=== PATIENT | female | born 1945 | race Caucasian/White ===

== ENCOUNTER → 2018-07-27 | Outpatient (CLI) | payer OTHER, BC ==
[~2018-07-27] VITALS: Ht 152.4 cm; Wt 61.7 kg
[~2018-07-27] MED LIST: ACETAMINOPHEN-1 EAC1 PO; ACETAMINOPHEN650 M5 PO; ADULT LOW DOSE81 MG PO; ALPRAZOLAM 0.0.25 M1 PO; BACTRIM DS TAB1 EACH PO; CALCIUM 500 +1 EACH PO; CALCIUM 500 WI1 EAC3 PO; FLEXERIL PO; HYDROCHLOROTHIA50 MG PO; LEVOTHYROXINE 0.1 MG PO; LIPITOR40 MG PO; LIPITOR80 MG PO; LOPRESSOR 50 MG50 M1 PO; LOPRESSOR50 MG PO; LOPRESSOR50 PO; LORTAB 5 MG/5001 TA1 PO; MACULAR VITAMI1 EACH PO; NAPROSYN500 MG PO; NORCO 5-325 TA1 EACH PO; OXYCODONE HCL 55 MG PO; OXYCODONE HCL5 M1 PO; PERCOCET PO; PLAVIX 75 MG TA75 M1 PO; PRENATAL VITAM1 EAC7 PO; ROBITUSSIN100 MG/53 PO; SYNTHROID75 MCG PO; SYNTHROID88 MCG PO; TOPAMAX50 MG PO; TOPROL XL25 MG PO; TRAMADOL 50 MG50 MG PO; TRAZODONE HCL100 MG PO; TYLENOL325 MG PO; ULTRAM 50MG TAB50 MG PO; VITAMINC500 PO; ZOCOR40 MG PO; [UNRECOGNIZED DRUG - OTHER] PO
[2018-07-27 08:14] LABS: HEMOGLOBIN 12.4 gm/dL (12.0-15.0); MCH 32.9 pg (26.0-34.0); MCHC 33.5 g/dL (28.0-37.0); MCV 98.1 fL (80.0-100.0); RBC 3.78 mil/uL (4.20-5.00); RDW 12.8 % (10.5-14.5); WBC 4.8 thou/uL (4.0-11.0)
[2018-07-27 08:22] LABS: CALCIUM 9.2 mg/dL (8.5-10.1); POTASSIUM 4.1 mmol/L (3.5-5.1)
[2018-07-27 08:34] VITALS: BP 141/50
--- NOTE | 2018-08-01 10:39 | HC ---
[facility] [place] [address] CONSULTATION Name: MADISYN RUGGIERO Room #: [facility]#: [id number] Admission: 07/27/18 ������������������ Attend Phys: Galdino Crenshaw MD Discharge: ������������������ Date of : 47 Report #: [id number] THIS REPORT FOR: //name// CC: Galdino Crenshaw FAM unknown CLARIBEL FRAUSTO DATE OF SERVICE: 07/27/2018 We were asked by Dr. Crenshaw to see the patient. HISTORY OF PRESENT ILLNESS: The patient is a 73-year-old with lower extremity claudication who just had arteriography today. The patient has an impressive history of peripheral arterial occlusive disease with bilateral iliac stents, mesenteric and renal stents and superficial femoral artery stents. Arteriography today reveals a stenotic and calcific common femoral artery that threatens both the superficial and deep left femoral arteries. The patient presents with limiting claudication. She denies nonhealing lesions. There was a dubious history of rest pain. PAST MEDICAL HISTORY: Significant for coronary artery disease with bypass surgery in 2015. The patient is treated for hypertension and she denies diabetes mellitus. The patient is a former smoker who claims she quit in the 90s. ALLERGIES: THE PATIENT CLAIMS TO BE ALLERGIC TO ANGELA INHIBITORS, AMOXICILLIN, AZITHROMYCIN, PHENYTOIN, TAPE, ADHESIVES. CURRENT MEDICATIONS: Include aspirin, Lipitor, Plavix, Flexeril, Mucinex, Synthroid, metoprolol, oxycodone, vitamins and Ultram. FAMILY HISTORY: Reveals that father had important coronary and peripheral arterial occlusive disease. REVIEW OF SYSTEMS: GENERAL: Denies weight change or fatigue. EYES: Denies vision change. ENT: Denies hearing loss or sinus problems. CARDIAC: Denies angina currently. RESPIRATORY: Denies cough or hemoptysis. GASTROINTESTINAL: Denies nausea, vomiting, blood in stool. GENITOURINARY: Denies dysuria or hematuria. MUSCULOSKELETAL: Claims of pain in the lower extremities at night that "began at the ankle and go up," but there is no history of foot pain. SKIN: No rash or infection. [facility] [address] [place] [address] CONSULTATION Name: MADISYN RUGGIERO Meño Room #: [facility]#: [id number] Admission: 07/27/18 ������������������ Attend Phys: Galdino Crenshaw MD Discharge: ������������������ Date of : 47 Report #: [id number] ENDOCRINE: No hot or cold intolerance. No tremor. NEUROLOGIC: Denies motor or sensory dysfunction. HEMATOLOGIC: Denies bruisability. PHYSICAL EXAMINATION: GENERAL: The patient is in bed after the arteriogram seems comfortable. VITAL SIGNS: Blood pressure 126/53, heart rate 59, room air saturation 100%, respiratory rate 16. HEENT: No scleral icterus, no arcus. Pupils are round and equal. Normocephalic. NECK: No mass. 1+ right cervical bruit. CHEST: Clear to auscultation. HEART: Rhythm regular, no murmur. ABDOMEN: Soft, no mass. EXTREMITIES: No clubbing, cyanosis or edema. We note left radial artery has been harvested and it appears that there is some incisions in the left leg related to distal saphenous vein harvest. VASCULAR: A 1-2+ right popliteal pulse. I do not feel any left popliteal pulse, 1+ left femoral pulse. Right femoral not palpated due to recent arterial stick. SKIN: No rash or infection. NEUROLOGIC: No motor or sensory dysfunction, but the patient is at bed rest. PSYCHIATRIC: Shows insight into problem and answers questions appropriately. I have reviewed the arteriogram with the patient. I have advised her that we recommend left femoral endarterectomy. Risks and details of this were discussed. Options and alternatives were reviewed. Risks include but are not limited to bleeding, infection, anesthesia risks, heart and lung problems, stroke and . The patient understands all of this and wishes to proceed. We will make arrangements for elective surgery. The patient will remain on aspirin and Plavix. Thank you for the consult. ��������������������������������������������� <ELECTRONICALLY SIGNED> ���������������������������������������� By: Aiden Lang MD ��������������������������������������������� 08/01/18 1039 1148 0019 Aiden Lang MD /nt
== END ==
LOC: SPEC 07:38
PROVIDERS: Nuclear Medicine Nuclear Cardiology
DX: I70.212 Atherosclerosis of native arteries of extremities with intermittent claudication, left leg (principal); K55.1 Chronic vascular disorders of intestine; I70.1 Atherosclerosis of renal artery; I10 Essential (primary) hypertension; E78.5 Hyperlipidemia, unspecified; Z86.73 Personal history of transient ischemic attack (TIA), and cerebral infarction without residual deficits; Z95.1 Presence of aortocoronary bypass graft; Z98.890 Other specified postprocedural states; Z90.711 Acquired absence of uterus with remaining cervical stump; Z85.850 Personal history of malignant neoplasm of thyroid; Z79.899 Other long term (current) drug therapy; Z88.8 Allergy status to other drugs, medicaments and biological substances

== ENCOUNTER 2018-08-04 05:30 | Inpatient (IN) | payer OTHER, BC ==
[2018-07-28 14:06] LABS: ABSOLUTE NEUTROPHILS 3.3 thou/uL (1.4-8.2); BASOPHILS 1.3 % (0.0-2.0); EOSINOPHILS 1.6 % (0.0-3.0); HEMATOCRIT 35.8 % (37.0-47.0); MCH 32.8 pg (26.0-34.0); MCHC 33.4 g/dL (28.0-37.0); MCV 97.9 fL (80.0-100.0); MONOCYTES 6.9 % (1.0-8.0); PLATELET COUNT 170 thou/uL (150-400); POLYS 62.2 % (36.0-66.0); RBC 3.66 mil/uL (4.20-5.00); RDW 12.6 % (10.5-14.5); WBC 5.3 thou/uL (4.0-11.0)
[2018-07-28 14:11] LABS: URINE BILIRUBIN NEGATIVE (Negative); URINE BLOOD NEGATIVE (Negative); URINE CLARITY CLEAR; URINE COLOR YELLOW; URINE GLUCOSE-RANDOM* NEGATIVE (Negative); URINE KETONES TRACE (Negative); URINE LEUKOCYTES-REFLEX TRACE (Negative); URINE NITRITE-REFLEX NEGATIVE (Negative); URINE PROTEIN (DIPSTICK) TRACE (Negative); URINE SPECIFIC GRAVITY 1.025 (1.005-1.035); URINE UROBILINOGEN 0.2 E.U./dl (0.2-1.0)
[2018-07-28 14:19] LABS: CREATININE 0.9 mg/dL (0.6-1.0); POTASSIUM 4.2 mmol/L (3.5-5.1); TOTAL BILIRUBIN 0.4 mg/dL (<0.1-1.0); TOTAL PROTEIN 6.4 g/dL (6.4-8.2)
[2018-07-28 14:20] LABS: APTT 30.9 Seconds (24.5-32.8); PROTIME 10.6 Seconds (9.3-11.4)
--- NOTE | 2018-07-28 16:18 | EKG ---
[address] [address] ELECTROCARDIOGRAM REPORT Name: MADISYN RUGGIERO Room #: [facility] IN ..#: [id number] ������������������ Admission: ������������������ Attend Phys: Aiden Lang MD Discharge: ������������������ Date of : 47 Report #: [id number] ����������������������������������������������������������������� [id number] THIS REPORT FOR: //name// [facility] Test Date: 2018-07-28 Test Time: 14:00:32 Pat Name: MADISYN RUGGIERO Department: Room: Gender: F Biomedical Equipment Technician: DELMY GARSIA : 1945 Requested By: Aiden Lang Order Number: [id number] MD: Gilson Chang Measurements Intervals [place] Rate: 66 P: 61 [place]: 176 QRS: 37 QRSD: 87 T: 44 QT: 414 QTc: 434 Interpretive Statements Sinus rhythm Compared to ECG 10/21/2013 07:48:53 Atrial premature complex(es) no longer present Electronically Signed On 07-28-2018 16:17:50 CDT by Gilson Chang [email or web address] ��������������������������������������������� <ELECTRONICALLY SIGNED> ���������������������������������������� By: Gilson Chang MD ��������������������������������������������� 07/28/18 1617 1400 Joelle Chang MD /AUDRA
[2018-08-04] VITALS (35 sets, daily range): BP systolic 110–145; BP diastolic 41–58
[~2018-08-04] VITALS: Ht 152.4 cm; Wt 57.6 kg
--- NOTE | 2018-08-04 11:35 | O ---
[facility] [address] [place] [address] OPERATIVE REPORT Name: MADISYN RUGGIERO Room #: 150-1 ADM IN M.R.#: [id number] Admission: 08/04/18 ������������������ Attend Phys: Aiden Lang MD Discharge: ������������������ Date of : 47 Report #: [id number] THIS REPORT FOR: //name// CC: Aiden Lang CLARIBEL [facility] Physician staff DATE OF SERVICE: 08/04/2018 PREOPERATIVE DIAGNOSIS: Left femoral artery occlusive disease. POSTOPERATIVE DIAGNOSIS: Left femoral artery occlusive disease. OPERATION: Left femoral endarterectomy with patch closure. SURGEON: Aiden Lang MD ANESTHESIA: General. INDICATIONS: The patient is a 73-year-old with diffuse peripheral arterial occlusive disease. The patient has iliac and superficial femoral stents, but the left common femoral is nearly plugged from calcific atherosclerosis leading to symptoms. FINDINGS AND TECHNIQUE: After general anesthesia was established, an incision was made in the left groin to expose the common deep and superficial femoral arteries. 10,000 units of heparin were given. The femoral vessels were occluded. Femoral arteriotomy was made. Endarterectomy was performed. The plaque was removed cleanly from the orifice of the profunda common, but the superficial femoral artery had a stent in place and we were only able to remove plaque as far as there was unstented artery. Tacking sutures were placed at the transition zone. When the endarterectomy was deemed satisfactory, the arteriotomy was closed with running Prolene and thin walled pericardial patch. Before finishing the closure, the vessels were backbled and the artery was irrigated with heparinized saline. Flow was established in the femoral artery. Protamine was given to reverse the heparin. When hemostasis was satisfactory, the wound was closed in layers with Vicryl for the subcutaneous and subcuticular layers and Monocryl for the skin. A Prevena dressing was applied. The patient was taken to the recovery area in good condition and there was a dorsalis pedis pulse palpable at the termination of [facility] [address] [place] [address] OPERATIVE REPORT Name: MADISYN RUGGIERO Room #: [address] [facility] IN [facility].#: [id number] Admission: 08/04/18 ������������������ Attend Phys: Aiden Lang MD Discharge: ������������������ Date of : 47 Report #: [id number] the operation, and the foot was warm and pink. All counts were reported as correct. ��������������������������������������������� <ELECTRONICALLY SIGNED> ���������������������������������������� By: Aiden Lang MD ��������������������������������������������� 08/04/18 1135 1038 1111 Adien Lang MD /nt
[2018-08-04] MEDS ORDERED: TOPROL XL25 MG PO (12:02)
--- NOTE | 2018-08-04 17:00 | NUR ---
SHORTLY AFTER PT RETURNED FROM SURGERY, SHE STATED THAT IT FELT LIKE SOMETHING WAS IN HER RIGHT EYE. A FEW OF LOWER EYELASHES WERE CURVED UP INTO HER EYE. EYE PINKISH, NOTHING OBSERVED IN EYE AFTER EYELASH DIRECTED APPROPIATELY. PT CONTINUING TO C/O OF DISCOMFORT, PREFERS TO KEEP R EYE CLOSED FOR COMFORT, RUBBING EYE CONSTANTLY. PT STATED THAT HER DAUGHTER REMOVED AN EYELASH FROM HER EYE. EYE CLEANSED WITH NS 10CC WITH MINIMAL RELIEF. ICE PACK APPLIED TO R EYE, PT RESTING QUIETLY. WHEN DR. JUNIOR AND JORGE WOODALL ROUNDED, THEY WERE EACH SEPARATELY NOTIFIED OF SITUATION. MORIAH IRRIGATED EYE WITH NS WITH PT HAVING SIGNIFICANT RELIEF- DISCOMFORT DOWN TO 2/10. ATTEMPTED TO CONTACT ANESTHESIA SEVERAL TIMES PER DR. RIVER MAJOR'S REQUEST. CALLED SEVERAL TIMES- PHONE BUSY OR NO ANSWER.
--- NOTE | 2018-08-04 18:45 | NUR ---
SHIFT SUMMARY: PATIENT ADMITTED TO ICU FROM PACU POST LEFT FEMORAL ENDARECTOMY PATIENT PROGERSSING TOWARDS OUTCOME GOALS EVIDENT WITH NEURO VASCULAR Q1H CHECKS SHOWING CAP REFILL LESS THAN 3 SEC, 1+ PULSES ON LEFT FOOT WITH GOOD SENSATION. JOSELITO DRIP FOR ELEVATED BP, OFF PRESENTLY WITH ADEQUATE PAIN CONTROL WITH ORAL PAIN MEDS. TAKING SMALL AMT OF DIET. PATIENT AND FAMILY GIVEN SUPPORT AND EDUCATION AND VERBALIZED UNDERSTANDING
[2018-08-05] VITALS (16 sets, daily range): BP systolic 102–131; BP diastolic 34–69
[2018-08-05 05:45] LABS: HEMATOCRIT 28.2 % (37.0-47.0); HEMOGLOBIN 9.5 gm/dL (12.0-15.0); MCH 32.6 pg (26.0-34.0); MCHC 33.6 g/dL (28.0-37.0); MCV 97.1 fL (80.0-100.0); RBC 2.9 mil/uL (4.20-5.00); RDW 12.3 % (10.5-14.5); WBC 7.6 thou/uL (4.0-11.0)
[2018-08-05 05:51] LABS: CALCIUM 8.2 mg/dL (8.5-10.1); CREATININE 0.7 mg/dL (0.6-1.0)
--- NOTE | 2018-08-05 07:16 | NUR ---
ASSUMED CARE OF PT AT 1900. PT ALERT AND ORIENTED X4. PT C/O LEFT LOWERE EXTREMETY PAIN AT SURGICAL SITE AND DISTAL TO SURGERY SITE. PT ALSO C/O LOWER BACK PAIN. PO AND IV MEDS GIVEN NEEDED. THIS AM PT ABLE TO AMBULATE TO CHAIR WITH ASSISTANCE X1. PT DID COMPLAIN ON PAIN WITH STANDING UP AND AMBULATING. TAYLOR D/C THIS AM AT 0540 PER ORDER. PT MAKING PROGRESS TOWARDS GOAL.
--- NOTE | 2018-08-05 18:08 | NUR ---
PT ALERT AND ORIENTED X4. UP TO CHAIR FOR 10 HRS TODAY. AMBULATED IN HALLWAY X3 TODAY WITH STANDBY ASSISTANCE AND WALKER. COMPLAINING OF PAIN IN LEFT LOWER EXTREMITY. GIVEN HYDROCODONE X2 FOR PAIN AND REPORTS GOOD RELIEF OF PAIN. TAYLOR DISCONTINUED THIS AM AND VOIDING WITHOUT DIFFICULTY TODAY ORDER FOR TRANSFER TO CCU, AWAITING AVAILABLE ROOM. PLAN FOR POSSIBLE DC HOME TOMORROW. PT'S CHILDREN AT BEDSIDE TODAY. WILL CONTINUE TO MONITOR PATIENT. PROGRESSING WELL TOWARDS GOALS PER PLAN OF CARE.
[2018-08-06 00:28] VITALS: BP 117/42
[2018-08-06 04:16] VITALS: BP 131/37
--- NOTE | 2018-08-06 04:39 | NUR ---
PT RESTING IN BED AND HAS SLEPT WELL THIS SHIFT. PT REMAINS ON RA. SR/SB ON MONITOR. PT LEFT GROIN PREVENA VAC IN PLACE AND INTACT.
[2018-08-06 07:56] VITALS: BP 144/46
[2018-08-06 08:37] VITALS: BP 144/46
[2018-08-06 08:39] VITALS: BP 144/46
--- NOTE | 2018-08-06 10:44 | NUR ---
DISCONTINUE TELE AND IV. OBTAIN ORDER FROM DR. JUNIOR FOR HOME WALKER. HAD PT/OT COME TO BEDSIDE TO MEASURE PT FOR WALKER AND PT WILL TAKE WALKER HOME. ALL BELONGINGS RETURNED TO PT AND SHE UNDERSTANDS FOLLOW UP ORDERS. PT WILL DISCHARGED TO HOME VIA PRIVATE VEHICLE AT 1100 TODAY.
--- NOTE | 2018-08-08 13:06 | PATH ---
[facility] [address] [place] [address] PATHOLOGY RPT PROCEDURE Name: MADISYN RUGGIERO Meño Room #: 243-P [facility] IN M.R.#: [id number] ������������������ Admission: 08/04/18 ������������������ Date of : 47 Discharge: 08/06/18 Report #: [id number] Path Case #: [id number] [facility] Accession Number: [id number] . 01 Material submitted: . femur - LEFT FEMORAL PLAQUE. Modifiers: left . 01 Clinical history: . PVD . 02 Diagnosis: Left femoral plaque, femoral endarterectomy: - Fragments comprised of calcific sclerosis. 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 (IUV:poultry pathologist; 08/05/2018) MBR/08/05/2018 . 02 Electronically signed: . Ericka Brunner MD, Pathologist NPI- [id number] . 01 Gross description: . The specimen is received in formalin, labeled "Madisyn Ruggiero, left femoral plaque" and consists of multiple calcified segments of pink-bartlett tissue measuring 3.8 x 1.8 x 0.6 cm in aggregate. Fulfillment Representative sections are submitted in A1 following decalcification. (SDY; 08/04/2018) SYU/SYU . 02 Pathologist provided ICD-10: I70.202 . 02 CPT . 634756, [id number] Specimen Comment: A courtesy copy of this report has been sent to Specimen Comment: [phone], . Specimen Comment: Report sent to / DR FRAUSTO Performed at: [address], [place] [id number] MD Hola Nixon MD Phone: [phone] Performed at: [address] [id number] MD Ericka Brunner MD Phone: [phone]
== END 2018-08-06 11:11 | disposition home or self-care (01) | DRG 254 ==
LOC: TBA 05:30 → PRE 07:43 → ICU 11:37 → PRE 13:05 → ICU 08-06 11:11
PROVIDERS: Physician Assistant; ADMIT Surgery Vascular Surgery
PROC: 04UL07Z Supplement Left Femoral Artery with Autologous Tissue Substitute, Open Approach (ICD-10-PCS; principal; 2018-08-04)
PROC: 04CL0ZZ Extirpation of Matter from Left Femoral Artery, Open Approach (ICD-10-PCS; principal; 2018-08-04)
DX: I70.202 Unspecified atherosclerosis of native arteries of extremities, left leg (principal); Z88.1 Allergy status to other antibiotic agents; Z88.8 Allergy status to other drugs, medicaments and biological substances; Z91.048 Other nonmedicinal substance allergy status
CPT/HCPCS: 10078; 47375; 48888; 50010; 50101; 50386; 50455; 50953; 51751; 52279; 56524; 56526; 56528; 56531; 56534; 56668; 56760; 57092; 57093; 62110; 62900; 70005

== ENCOUNTER → 2019-03-23 | Outpatient (CLI) | payer OTHER, BC ==
--- NOTE | 2019-03-23 13:19 | 2DMMODE ---
[facility] [place] [address] 2 D/M-MODE ECHOCARDIOGRAM Name: MONIKMADISYN Meño Room #: REG [facility]#: [id number] Admission: 03/23/19 Attend Phys: Usman Wilkins, Discharge: Date of : 47 Report #: [id number] THIS REPORT FOR: //name// APPROVED REPORT Study performed: 03/23/2019 11:27:35 EXAM: Comprehensive 2D, Doppler, and color-flow Echocardiogram Patient Location: Out-Patient Status: routine BSA: 1.52 HR: 60 bpm BP: 128/72 mmHg Rhythm: NSR Other Information Study Quality: Excellent Indications Chest pain, CAD, HTN. Hx: CABG, PVD, HLP. 2D Dimensions RVDd: 30.59 mm IVSd: 9.34 (7-11mm) LVOT Diam: 19.94 (18-24mm) LVDd: 46.54 mm PWd: 9.29 (7-11mm) Ascending Ao: 31.79 (22-36mm) LVDs: 30.85 (25-40mm) Aortic Root: 36.04 mm Volumes Left Atrial Volume (Systole) Single Plane 4CH: 40.14 mL Single Plane 2CH: 40.64 mL LA ESV Index: 27.00 mL/m2 Aortic Valve AoV Peak Carson.: 1.24 m/s AO Peak Gr.: 6.15 mmHg LVOT Max P.18 mmHg LVOT Max V: 0.74 m/s KATHY Vmax: 1.86 cm2 Mitral Valve E/A Ratio: 1.5 MV Decel. Time: 167.72 ms MV E Max Carson.: 1.06 m/s [facility] [employer] [address] [place] [address] 2 D/M-MODE ECHOCARDIOGRAM Name: MADISYN RUGGIERO Meño Room #: [facility]#: [id number] Admission: 03/23/19 Attend Phys: Usman Wilkins, Discharge: Date of : 47 Report #: [id number] MV A Carson.: 0.73 m/s MV PHT: 48.64 ms IVRT: 69.20 ms Pulmonary Valve PV Peak Carson.: 0.90 m/s PV Peak Gr.: 3.22 mmHg Pulmonary Vein P Vein S: 0.70 m/s P Vein A: 0.35 m/s P Vein D: 0.64 m/s P Vein A Dur.: 156.9 msec P Vein S/D Ratio: 1.09 Tricuspid Valve TR Peak Carson.: 2.47 m/s RAP Estimate: 5.00 mmHg TR Peak Gr.: 24.47 mmHg PA Pressure: 29.00 mmHg Left Ventricle The left ventricle is normal size. There is normal LV segmental wall motion. There is normal left ventricular wall thickness. Left ventricular systolic function is normal. LVEF is 60-65%. Moderate diastolic dysfunction is present (pseudonormal filling). Right Ventricle The right ventricle is normal size. The right ventricular systolic function is normal. Atria The left atrium size is normal. The right atrium size is normal. Aortic Valve The aortic valve is normal in structure. Leaflets are mildly sclerotic. Mild aortic regurgitation. There is no aortic valvular stenosis. Mitral Valve Mitral valve leaflets are mildly thickened. Mild to moderate mitral regurgitation. Tricuspid Valve The tricuspid valve is normal in structure. Moderate tricuspid regurgitation. Estimated PAP is 30mmHg. Pulmonic Valve The pulmonary valve is normal in structure. Trace pulmonic [facility] [address] [place] [address] 2 D/M-MODE ECHOCARDIOGRAM Name: MADISYN RUGGIERO Room #: [facility] [place]#: [id number] Admission: 03/23/19 Attend Phys: Usman Wilkins, Discharge: Date of : 47 Report #: [id number] regurgitation. Great Vessels The aortic root is normal in size. The ascending aorta is normal in size. IVC is normal in size and collapses >50% with inspiration. Pericardium There is no pericardial effusion. <Conclusion> The left ventricle is normal size. LVEF is 60-65%. Moderate diastolic dysfunction is present (pseudonormal filling). The left atrium size is normal. The aortic valve is normal in structure. Leaflets are mildly sclerotic. Mild aortic regurgitation. Mitral valve leaflets are mildly thickened. Mild to moderate mitral regurgitation. Moderate tricuspid regurgitation. Estimated PAP is 30mmHg. The aortic root is normal in size. There is no pericardial effusion. <ELECTRONICALLY SIGNED> By: Usman Wilkins MD, FACC 03/23/19 1318 Usman Wilkins MD, FACC /INF
== END ==
LOC: CV 10:56
DX: I08.3 Combined rheumatic disorders of mitral, aortic and tricuspid valves (principal); I10 Essential (primary) hypertension; I25.10 Atherosclerotic heart disease of native coronary artery without angina pectoris; I73.9 Peripheral vascular disease, unspecified; E78.5 Hyperlipidemia, unspecified

== ENCOUNTER → 2019-03-28 | Outpatient (CLI) | payer OTHER, BC | LOC: NUC 11:18 | DX: R07.9 Chest pain, unspecified (principal); I25.10 Atherosclerotic heart disease of native coronary artery without angina pectoris; I10 Essential (primary) hypertension ==

== ENCOUNTER → 2019-08-21 | Outpatient (CLI) | payer OTHER, BC | LOC: SJCVCIMAG 06-06 13:53 | PROVIDERS: ATTEND Internal Medicine Cardiovascular Disease | DX: I65.23 Occlusion and stenosis of bilateral carotid arteries (principal); I73.9 Peripheral vascular disease, unspecified; I25.10 Atherosclerotic heart disease of native coronary artery without angina pectoris; Z95.820 Peripheral vascular angioplasty status with implants and grafts ==

== ENCOUNTER → 2019-08-31 | Outpatient (CLI) | payer OTHER, BC | LOC: SJCVC 11:19 | PROVIDERS: ATTEND Internal Medicine Cardiovascular Disease | DX: R00.1 Bradycardia, unspecified (principal); I25.810 Atherosclerosis of coronary artery bypass graft(s) without angina pectoris; I10 Essential (primary) hypertension; E78.00 Pure hypercholesterolemia, unspecified; K55.1 Chronic vascular disorders of intestine; I65.23 Occlusion and stenosis of bilateral carotid arteries; E78.5 Hyperlipidemia, unspecified; I73.9 Peripheral vascular disease, unspecified; Z95.1 Presence of aortocoronary bypass graft; Z86.73 Personal history of transient ischemic attack (TIA), and cerebral infarction without residual deficits; Z79.82 Long term (current) use of aspirin; Z79.899 Other long term (current) drug therapy; Z87.891 Personal history of nicotine dependence; Z82.49 Family history of ischemic heart disease and other diseases of the circulatory system ==

== ENCOUNTER → 2020-04-02 | Outpatient (CLI) | payer OTHER, BC | LOC: SJCVCIMAG 07:20 | PROVIDERS: ATTEND Nuclear Medicine Nuclear Cardiology | DX: I65.23 Occlusion and stenosis of bilateral carotid arteries (principal); I73.9 Peripheral vascular disease, unspecified; K55.1 Chronic vascular disorders of intestine; I10 Essential (primary) hypertension; E78.00 Pure hypercholesterolemia, unspecified; R09.89 Other specified symptoms and signs involving the circulatory and respiratory systems; E78.5 Hyperlipidemia, unspecified; I25.810 Atherosclerosis of coronary artery bypass graft(s) without angina pectoris; Z86.73 Personal history of transient ischemic attack (TIA), and cerebral infarction without residual deficits; Z95.820 Peripheral vascular angioplasty status with implants and grafts; Z98.890 Other specified postprocedural states; Z95.1 Presence of aortocoronary bypass graft; Z79.82 Long term (current) use of aspirin; Z79.899 Other long term (current) drug therapy; Z82.49 Family history of ischemic heart disease and other diseases of the circulatory system; Z87.891 Personal history of nicotine dependence ==

== ENCOUNTER → 2020-10-29 | Outpatient (CLI) | payer OTHER, BC | LOC: SJCVCIMAG 08:11 | PROVIDERS: ATTEND Nuclear Medicine Nuclear Cardiology | DX: I65.23 Occlusion and stenosis of bilateral carotid arteries (principal); I73.9 Peripheral vascular disease, unspecified; I77.9 Disorder of arteries and arterioles, unspecified; I25.10 Atherosclerotic heart disease of native coronary artery without angina pectoris; I10 Essential (primary) hypertension; K55.1 Chronic vascular disorders of intestine; E78.00 Pure hypercholesterolemia, unspecified; E78.5 Hyperlipidemia, unspecified; Z95.1 Presence of aortocoronary bypass graft; Z82.49 Family history of ischemic heart disease and other diseases of the circulatory system; Z79.82 Long term (current) use of aspirin; Z79.899 Other long term (current) drug therapy; Z88.1 Allergy status to other antibiotic agents; Z88.8 Allergy status to other drugs, medicaments and biological substances; Z87.891 Personal history of nicotine dependence ==

== ENCOUNTER → 2021-04-21 | Outpatient (CLI) | payer OTHER, BC | LOC: SJCVCIMAG 11:08 | PROVIDERS: ATTEND Internal Medicine Cardiovascular Disease | DX: I65.23 Occlusion and stenosis of bilateral carotid arteries (principal); I70.291 Other atherosclerosis of native arteries of extremities, right leg; I77.9 Disorder of arteries and arterioles, unspecified; I25.10 Atherosclerotic heart disease of native coronary artery without angina pectoris; I10 Essential (primary) hypertension; E78.00 Pure hypercholesterolemia, unspecified; E78.5 Hyperlipidemia, unspecified; E89.0 Postprocedural hypothyroidism; K55.1 Chronic vascular disorders of intestine; Z95.1 Presence of aortocoronary bypass graft; Z90.710 Acquired absence of both cervix and uterus; Z87.891 Personal history of nicotine dependence; Z88.8 Allergy status to other drugs, medicaments and biological substances; Z79.82 Long term (current) use of aspirin; Z79.899 Other long term (current) drug therapy; Z88.1 Allergy status to other antibiotic agents ==